=== PATIENT | female | born 1995 | race Caucasian/White ===

== ENCOUNTER 2017-06-08 17:49 | Emergency (ER) | payer OTHER, BC ==
[2017-06-08] MEDS ORDERED: Sodium Chloride 0.9% 10 ML Syringe FLUSH PRN (18:22)
[2017-06-08] MEDS ORDERED: Ondansetron 4 MG/2 ML SDV IVPUSH ONE (18:22)
[2017-06-08] MEDS ORDERED: Sodium Chloride 0.9% 2.5 ML Syringe FLUSH PRN (18:22)
[2017-06-08] MEDS ORDERED: Sodium Chloride 0.9% 1,000 ML IV ONE ×2 (18:32→19:27)
--- NOTE | 2017-06-08 18:43 | EDM.PDOC ---
<Racquel Almanzar - Last Filed: 06/08/17 19:46> ED HPI GENERAL MEDICAL PROBLEM - General Chief Complaint: Gastrointestinal Problem Stated Complaint: 15WEEKS/POSSIBLE FLU Time Seen by Provider: 06/08/17 18:18 - History of Present Illness INITIAL COMMENTS - FREE TEXT/NARRATIVE: There is Dr. Almanzar dictating an addendum note as this case has been endorsed to me at 7 PM. History and physical are as above. heart tones were obtained by labor and delivery and are 168 strong. UA indicates dehydration with ketosis and the patient's initial IV has infiltrated but was repositioned by nursing and she is receiving her first liter of IV fluids. I will give her a second liter of fluids and start by mouth as she is not having any nausea or vomiting currently. She says she feels she is ready to try a popsicle. I will follow-up on the influenza and disposition appropriately. I will stress need for follow-up with her OB M.D. she tells me that she did have some issues with vomiting at around 8 or 9 weeks but has been doing well recently. She states understanding and is overall feeling better and will be disposition home after her second liter of IV fluids. - Related Data Allergies Allergy/AdvReac Type Severity Reaction Status Date / Time No Known Allergies Allergy Verified 06/08/17 18:12 Home Meds: Home Meds Ondansetron [Ondansetron ODT] 1 tab PO ASDIRECTED 06/08/17 [History] Course - Vital Signs Last Recorded V/S: Last Vital Signs Temp 99.3 F 06/08/17 21:15 Pulse 88 06/08/17 21:15 Resp 14 06/08/17 21:15 BP 110/63 06/08/17 21:15 Pulse Ox 97 06/08/17 21:15 - Orders/Labs/Meds Orders: Active Orders 24 hr Category Date Time Status INFLUENZA A+B AG SCREEN [RM] Stat Lab 06/08/17 18:36 Ordered UA W/MICROSCOPIC [URIN] Stat Lab 06/08/17 18:36 Ordered Saline Lock Insert [OM.PC] Stat Oth 06/08/17 18:22 Ordered Labs: Laboratory Tests 06/08/17 Range/Units 18:36 Urine Color YELLOW Urine Appearance HAZY Urine pH 5.5 (5.0-8.0) Ur Specific [place] >= 1.030 (1.001-1.035) Urine Protein 30 (NEGATIVE) mg/dL Urine Glucose (UA) NEGATIVE (NEGATIVE) mg/dL Urine Ketones >=80 (NEGATIVE) mg/dL Urine Occult Blood NEGATIVE (NEGATIVE) Urine Nitrite NEGATIVE (NEGATIVE) Urine Bilirubin SMALL H (NEGATIVE) Urine Ictotest NEGATIVE Urine Urobilinogen 1.0 (<2.0) EU/dL Ur Leukocyte Esterase NEGATIVE (NEGATIVE) Urine RBC 1-2 (0-2/HPF) Urine WBC 0-2 (0-5/HPF) Ur Epithelial Cells FEW (NONE-FEW) Urine Bacteria FEW (NEGATIVE) Urine Mucus LIGHT (NONE-MOD) Meds: Medications Discontinued Medications Generic Name Dose Route Start Last Admin Trade Name Freq PRN Reason Stop Dose Admin Sodium Chloride 1,000 mls @ 999 mls/hr 06/08/17 18:32 06/08/17 18:46 Normal Saline IV 06/08/17 19:32 999 mls/hr .Bolus ONE Administration Sodium Chloride 1,000 mls @ 999 mls/hr 06/08/17 19:27 06/08/17 19:59 Normal Saline IV 06/08/17 20:27 999 mls/hr STAT ONE Administration Ondansetron HCl 4 mg 06/08/17 18:22 06/08/17 18:46 Zofran IVPUSH 06/08/17 18:23 4 mg ONETIME ONE Administration Sodium Chloride 10 ml 06/08/17 18:22 06/08/17 19:12 Saline Flush FLUSH 10 ml ASDIRECTED PRN Administration Keep Vein Open Sodium Chloride 2.5 ml 06/08/17 18:22 06/08/17 19:12 Saline Flush FLUSH 2.5 ml ASDIRECTED PRN Administration Keep Vein Open Departure - Departure Time of Disposition: 19:47 Disposition: Home, Self-Care 01 Condition: Good Clinical Impression: Vomiting, Diarrhea, Dehydration, Second trimester - Discharge Information Instructions: Dehydration, Adult, [id number], Nausea and Vomiting, Adult Referrals: Larisa Patterson MD [Primary Care Provider] - Forms: ED Department Discharge Additional Instructions: The following information is given to patients seen in the emergency department who are being discharged to home. This information is to outline your options for follow-up care. We provide all patients seen in our emergency department with a follow-up referral. The need for follow-up, as well as the timing and circumstances, are variable depending upon the specifics of your emergency department visit. If you don't have a primary care physician on staff, we will provide you with a referral. We always advise you to contact your personal physician following an emergency department visit to inform them of the circumstance of the visit and for follow-up with them and/or the need for any referrals to a consulting specialist. The emergency department will also refer you to a specialist when appropriate. This referral assures that you have the opportunity for followup care with a specialist. All of these measure are taken in an effort to provide you with optimal care, which includes your followup. Under all circumstances we always encourage you to contact your private physician who remains a resource for coordinating your care. When calling for followup care, please make the office aware that this follow-up is from your recent emergency room visit. If for any reason you are refused follow-up, please contact the [facility] emergency department at and ask to speak to the emergency department charge nurse. [address] [address] Please push hydration and small bites of bland foods and please contact her OB M.D. for follow-up. Return to ER as needed and as discussed - My Orders Last 24 Hours: My Active Orders 06/08/17 18:22 Saline Lock Insert [OM.PC] Stat 06/08/17 18:36 INFLUENZA A+B AG SCREEN [RM] Stat UA W/MICROSCOPIC [URIN] Stat - Assessment/Plan Last 24 Hours: My Active Orders 06/08/17 18:22 Saline Lock Insert [OM.PC] Stat 06/08/17 18:36 INFLUENZA A+B AG SCREEN [RM] Stat UA W/MICROSCOPIC [URIN] Stat <Mery Liriano - Last Filed: 06/09/17 07:07> ED HPI GENERAL MEDICAL PROBLEM - General Source of Information: Reports: Patient History Limitations: Reports: No Limitations - History of Present Illness INITIAL COMMENTS - FREE TEXT/NARRATIVE: History of present illness: []Patient's had 3 day history of flu symptoms with body aches, vomiting, diarrhea, and chills. Patient had influenza 4 months ago and states it feels the same. She did not have a flu shot this year. Patient is 15 weeks . Patient has had 1 episodes of vomiting the first night 6 episodes yesterday and 3 times today. She has had a similar amount of nonbloody watery diarrhea. She denies any vaginal bleeding or lower pelvic pain. Review of systems: As per history of present illness and below otherwise all systems reviewed and negative. Past medical history: As per history of present illness and as reviewed below otherwise noncontributory. Surgical history: As per history of present illness and as reviewed below otherwise noncontributory. Social history: No reported history of drug or alcohol abuse. Family history: As per history of present illness and as reviewed below otherwise noncontributory. Physical exam: General: Well developed, well nourished in NAD HEENT: Atraumatic, normocephalic, pupils reactive, negative for conjunctival pallor or scleral icterus, mucous membranes moist, throat clear, neck supple, nontender, trachea midline. Lungs: Clear to auscultation, breath sounds equal bilaterally, chest nontender. Heart: S1S2, regular, negative for clicks, rubs, or JVD. Abdomen: NABS, Soft, nondistended, diffuse mild tenderness no rebound or guarding. Negative for masses or hepatosplenomegaly. Negative for costovertebral tenderness. Pelvis: Stable nontender. Genitourinary: Deferred. Rectal: Deferred. Extremities: Atraumatic, negative for cords or calf pain. Neurovascular unremarkable. Neuro: Awake, alert, oriented. Cranial nerves II through XII unremarkable. Cerebellum unremarkable. Motor and sensory unremarkable throughout. Exam nonfocal. Diagnostics: heart tones and influenza are pending at the time of dictation Therapeutics: []IV hydrated, Zofran, reevaluation per Dr. Almanzar Impression: []Vomiting, diarrhea, dehydration, second trimester . Further diagnosis per Dr. Almanzar Plan: []Disposition per Dr. Almanzar Definitive disposition and diagnosis as appropriate pending reevaluation and review of above. Past Medical History HEENT History: Reports: None Neurological History: Reports: Migraines - Past Surgical History HEENT Surgical History: Reports: Oral Surgery Neurological Surgical History: Reports: None Social & Family History - Family History Family Medical History: Noncontributory - Tobacco Use Smoking Status *Q: Never Smoker Second Hand Smoke Exposure: No - Caffeine Use Caffeine Use: Reports: Other - Recreational Drug Use Recreational Drug Use: No ED ROS GENERAL - Review of Systems Review Of Systems: See Below (See history of present illness) ED EXAM, GENERAL - Physical Exam Exam: See Below (See history of present illness) Course - Orders/Labs/Meds Labs: Laboratory Tests 06/08/17 Range/Units 18:36 Urine Color YELLOW Urine Appearance HAZY Urine pH 5.5 (5.0-8.0) Ur Specific [place] >= 1.030 (1.001-1.035) Urine Protein 30 (NEGATIVE) mg/dL Urine Glucose (UA) NEGATIVE (NEGATIVE) mg/dL Urine Ketones >=80 (NEGATIVE) mg/dL Urine Occult Blood NEGATIVE (NEGATIVE) Urine Nitrite NEGATIVE (NEGATIVE) Urine Bilirubin SMALL H (NEGATIVE) Urine Ictotest NEGATIVE Urine Urobilinogen 1.0 (<2.0) EU/dL Ur Leukocyte Esterase NEGATIVE (NEGATIVE) Urine RBC 1-2 (0-2/HPF) Urine WBC 0-2 (0-5/HPF) Ur Epithelial Cells FEW (NONE-FEW) Urine Bacteria FEW (NEGATIVE) Urine Mucus LIGHT (NONE-MOD)
[2017-06-08 21:16] VITALS: BP 110/63
== END 2017-06-08 21:17 | disposition home or self-care (01) ==
LOC: MW.ED 17:49
DX: O21.9 Vomiting of pregnancy, unspecified (principal); O99.89 Other specified diseases and conditions complicating pregnancy, childbirth and the puerperium; R19.7 Diarrhea, unspecified; O99.282 Endocrine, nutritional and metabolic diseases complicating pregnancy, second trimester; E86.0 Dehydration; Z3A.15 15 weeks gestation of pregnancy
CPT/HCPCS: 81001; 87804; 96361; 96374; 99284; J2405; J7040

== ENCOUNTER 2017-11-11 10:54 | Day surgery (SDC) | payer BC, OTHER ==
[2017-11-11] MEDS ORDERED: Sodium Chloride 0.9% 10 ML Syringe FLUSH PRN (11:12)
[2017-11-11] MEDS ORDERED: Sodium Chloride 0.9% 2.5 ML Syringe FLUSH PRN (11:12)
[2017-11-11] MEDS: Lactated Ringers 1,000 ML IV SCH ×3 (11:43→15:17)
[2017-11-11] MEDS ORDERED: Bupivacaine 0.5% 10 ML SDV ONE (12:37)
--- NOTE | 2017-11-11 12:43 | PCM.PREANE ---
Preanesthetic Assessment - Anesthesia/Transfusion/Family Hx Anesthesia History: No Prior Anesthesia Family History of Anesthesia Reaction: No Transfusion History: No Prior Transfusion(s) - Review of Systems General: No Symptoms Pulmonary: No Symptoms Cardiovascular: No Symptoms Gastrointestinal: No Symptoms Neurological: No Symptoms Other: Reports: None - Physical Assessment Height: 5 ft 6 in Weight: 82.191 kg ASA Class: 2 Mental Status: Alert & Oriented x3 Airway Class: Mallampati = 2 Dentition: Reports: Normal Dentition Thyro-Mental Finger Breadths: 3 Mouth Opening Finger Breadths: 3 ROM/Head Extension: Full Lungs: Clear to Auscultation, Normal Respiratory Effort Cardiovascular: Regular Rate, Regular Rhythm - Lab Values: Laboratory Last Values WBC 10.77 K/uL (4.0-11.0) 11/11/17 11:42 RBC 3.82 M/uL (4.30-5.90) L 11/11/17 11:42 Hgb 12.5 g/dL (12.0-16.0) 11/11/17 11:42 Hct 37.0 % (36.0-46.0) 11/11/17 11:42 MCV 96.9 fL (80.0-98.0) 11/11/17 11:42 MCH 32.7 pg (27.0-32.0) H 11/11/17 11:42 MCHC 33.8 g/dL (31.0-37.0) 11/11/17 11:42 RDW Std Deviation 45.4 fl (28.0-62.0) 11/11/17 11:42 RDW Coeff of Marnie 13 % (11.0-15.0) 11/11/17 11:42 Plt Count 206 K/uL (150-400) 11/11/17 11:42 MPV 12.10 fL (7.40-12.00) H 11/11/17 11:42 Nucleated RBC % 0.0 /100WBC 11/11/17 11:42 Nucleated RBCs # 0 K/uL 11/11/17 11:42 Blood Type A POSITIVE 11/11/17 11:42 Antibody Screen NEGATIVE 11/11/17 11:42 - Allergies Allergies/Adverse Reactions: Allergies Allergy/AdvReac Type Severity Reaction Status Date / Time No Known Allergies Allergy Verified 11/11/17 11:12 - Acknowledgements Anesthesia Type Planned: Epidural Pt an Appropriate Candidate for the Planned Anesthesia: Yes Alternatives and Risks of Anesthesia Discussed w Pt/Guardian: Yes Pt/Guardian Understands and Agrees with Anesthesia Plan: Yes PreAnesthesia Questionnaire HEENT History: Reports: None Cardiovascular History: Reports: None Respiratory History: Reports: None Gastrointestinal History: Reports: GERD Genitourinary History: Reports: None LARD BLEACHER History: Reports: : 1 Para: 0 LMP (Approximate): Musculoskeletal History: Reports: None Neurological History: Reports: Migraines Psychiatric History: Reports: None Endocrine/Metabolic History: Reports: Obesity/BMI 30+ Hematologic History: Reports: None Immunologic History: Reports: None Oncologic (Cancer) History: Reports: None Dermatologic History: Reports: None - Infectious Disease History Infectious Disease History: Reports: Herpes - Past Surgical History HEENT Surgical History: Reports: Oral Surgery Neurological Surgical History: Reports: None - HOME MEDS Home Medications: Home Meds Ondansetron [Ondansetron ODT] 1 tab PO TID 06/08/17 [History] Calcium Carbonate [Tums] 500 mg PO DAILY PRN 11/11/17 [History] Cyanocobalamin (Vitamin B-12) [Vitamin B12] 2,500 mcg PO DAILY 11/11/17 [History ] Pnv No.122/Iron/Folic Acid [ Multi Tablet] 1 each PO DAILY 11/11/17 [ History] diphenhydrAMINE HCl [Benadryl] 25 mg PO DAILY PRN 11/11/17 [History] - CURRENT (IN HOUSE) MEDS Current Meds: Current Medications Lactated Ringer's (Ringers, Lactated) 1,000 mls @ 125 mls/hr IV ASDIRECTED [facility] Last Admin: 11/11/17 11:43 Dose: 150 mls/hr Sodium Chloride (Saline Flush) 10 ml FLUSH ASDIRECTED PRN PRN Reason: Keep Vein Open Sodium Chloride (Saline Flush) 2.5 ml FLUSH ASDIRECTED PRN PRN Reason: Keep Vein Open
[2017-11-11] MEDS ORDERED: Lidocaine 1% 50 ML MDV ONE (13:03)
[2017-11-11] MEDS ORDERED: Terbutaline 1 MG/ML SDV ONE (13:29)
[2017-11-11] MEDS ORDERED: ePHEDrine 50 MG/ML SDV ONE (13:58)
[2017-11-11] MEDS ORDERED: Phenylephrine 1% 10 MG/ML SDV ONE (13:59)
[2017-11-11] MEDS ORDERED: Ondansetron 4 MG/2 ML SDV ONE (14:02)
[2017-11-11] MEDS ORDERED: Ondansetron 4 MG/2 ML SDV IVPUSH ONE (14:43)
[2017-11-11] MEDS ORDERED: Terbutaline 1 MG/ML SDV SUBCUT ONE (14:44)
--- NOTE | 2017-11-11 18:54 | PCM48HPAN ---
Post Anesthesia Note - EVALUATION WITHIN 48HRS OF ANESTHETIC Vital Signs in Normal Range: Yes Patient Participated in Evaluation: Yes Respiratory Function Stable: Yes Airway Patent: Yes Cardiovascular Function Stable: Yes Hydration Status Stable: Yes Pain Control Satisfactory: Yes Nausea and Vomiting Control Satisfactory: Yes Mental Status Recovered: Yes - COMMENTS/OBSERVATIONS Free Text/Narrative:: sensory and motor grossly intact. Patient voiding and ambulating prior to discharge.
--- NOTE | 2017-11-12 10:01 | US ---
EXAMINATION: Transabdominal obstetric ultrasound HISTORY: version COMPARISON: None TECHNIQUE: Grayscale and M-mode imaging obtained. FINDINGS: Single live intrauterine is noted without rate of 144 to 120 bpm. Initial imaging demonstrated a breech position with subsequent cephalic positioning post inversion. IMPRESSION: Sonographic imaging demonstrates successful version to a cephalic position.
--- NOTE | 2017-11-12 11:13 | OR ---
SURGEON: Larisa Patterson M.D. DATE OF PROCEDURE: 11/11/2017 PREOPERATIVE DIAGNOSES: 1. 37-week intrauterine . 2. Angelic breech presentation. POSTOPERATIVE DIAGNOSES: 1. 37-week intrauterine . 2. Angelic breech presentation. 3. Breech converted to cephalic presentation. ANESTHESIA: Epidural. ESTIMATED BLOOD LOSS: None. PROCEDURE: External cephalic version. COMPLICATIONS: None known. DISPOSITION: To home. BRIEF HISTORY: This is a 22-year-old female, G1, P0. She presented at 37 weeks in the clinic with angelic breech presentation. She was 2 to 3 cm dilated, she had normal amniotic fluid, normal growth. No nuchal cord. She was offered options of external cephalic version. With risks of pain, placental abruption, injury, rupture of membranes or onset of labor requiring urgent delivery, distress requiring urgent delivery versus planned delivery if she did not convert to cephalic spontaneously. She desired to proceed with an external cephalic version under epidural analgesia. The patient received her epidural. She had category 1 tracing with very occasional contractions. After appropriate time-out was held, the patient received terbutaline subcu and ultrasound was present for the procedure. Two attempts were made at external version elevating the breech externally and with the head rotating forward, these attempts were unsuccessful. Once the heart tones recovered, I did offer an additional attempt with vaginal elevation of the breech and the patient did agree and therefore I did elevate the breech from the pelvis vaginally being careful to avoid the slightly open cervix. The nurse was assisting me, then grasped the breech from above and then I was able to rotate the head to a cephalic presentation, confirmed by ultrasound. Following this, heart tones were in the 130s to 150s, category 1 with a very occasional contractions. Following the second attempt at version, she did develop hypotension. Anesthesia was present and did provide ephedrine for her and the patient's blood pressure recovered with IV fluids as well as ephedrine and following the procedure, the fetus was documented to be cephalic presentation, category 1 heart tones. No regular contractions and she was released to home. MILADYS / SANTOS /[id number]
== END 2017-11-11 17:30 | disposition home or self-care (01) ==
LOC: MW.SDS 10:54
PROVIDERS: ATTEND Obstetrics & Gynecology
DX: O32.1XX0 Maternal care for breech presentation, not applicable or unspecified (principal); Z3A.37 37 weeks gestation of pregnancy
CPT/HCPCS: 36415; 51701; 59025; 59412; 76815; 85027; 86850; 86900; 86901; J2370; J2405; J3105; J3490; J7120; 01958

== ENCOUNTER 2017-11-20 05:03 | Inpatient (IN) | payer BC ==
[2017-11-20] MEDS ORDERED: Lidocaine 1% 50 ML MDV INJECT PRN (05:33)
[2017-11-20] MEDS ORDERED: Water For Irrigation,Sterile 1,000 ML Container IRR PRN (05:33)
[2017-11-20] MEDS ORDERED: Misoprostol 200 MCG Tab PO PRN (05:33)
[2017-11-20] MEDS ORDERED: Carboprost Tromethamine 250 MCG/1 ML Amp IM PRN (05:33)
[2017-11-20] MEDS ORDERED: Nalbuphine 10 MG/1 ML Vial IVPUSH PRN (05:33)
[2017-11-20] MEDS ORDERED: Sodium Chloride 0.9% 10 ML Syringe FLUSH PRN (05:33)
[2017-11-20] MEDS ORDERED: Sodium Chloride 0.9% 2.5 ML Syringe FLUSH PRN (05:33)
[2017-11-20] MEDS ORDERED: Methylergonovine 0.2 MG/1 ML Amp IM PRN ×2 (05:33→14:47)
[2017-11-20] MEDS ORDERED: Butorphanol 1 MG/ML SDV IVPUSH PRN (05:33)
[2017-11-20] MEDS ORDERED: Tranexamic Acid 1,000 MG in Sodium Chloride 0.9% 100 ML IV PRN (05:33)
[2017-11-20] MEDS ORDERED: Terbutaline 1 MG/ML SDV SUBCUT PRN (05:33)
[2017-11-20] MEDS ORDERED: Oxytocin/0.9 % Sodium Chloride 30 UNIT/500 ML BAG IV SCH ×2 (05:45)
[2017-11-20] MEDS: Lactated Ringers 1,000 ML IV SCH ×2 (06:12→11:21)
--- NOTE | 2017-11-20 10:59 | US ---
EXAM DATE: 11/20/17 PATIENT'S AGE: 22 Patient: JOHN MCDONOUGH Facility: [place], [place] Site . Site : 1996 Study: US OB Pelvis [id number]/2017 7:05:14 AM Ordering Physician: Leonardo Peres Final Report: INDICATION: CHECK POSITION PRIOR TO INDUCTION HISTORY: Check position prior to induction. COMPARISON: None. TECHNIQUE: obstetric ultrasound. FINDINGS: Single living intrauterine fetus. Cardiac activity by M-mode ultrasound is 130 beats per minute. Presentation is currently cephalic. There is no placenta previa identified. Subjectively, amniotic fluid volume is within normal limits. The placenta is posterior. IMPRESSION: Presentation is currently cephalic. Dictated by Pratik Witt MD @ 11/20/2017 7:21:02 AM Dictated by: Pratik Witt MD @ 11/20/2017 07:21:07 (Electronic Signature) Report Signed by Proxy. MARTIN
--- NOTE | 2017-11-20 11:15 | PCM.PREANE ---
Preanesthetic Assessment - Anesthesia/Transfusion/Family Hx Anesthesia History: No Prior Anesthesia Family History of Anesthesia Reaction: No Transfusion History: No Prior Transfusion(s) - Review of Systems General: No Symptoms Pulmonary: No Symptoms Cardiovascular: No Symptoms Gastrointestinal: No Symptoms Neurological: No Symptoms Other: Reports: None - Physical Assessment Height: 5 ft 7 in Weight: 82.554 kg ASA Class: 2 Mental Status: Alert & Oriented x3 Airway Class: Mallampati = 2 Dentition: Reports: Normal Dentition Thyro-Mental Finger Breadths: 3 Mouth Opening Finger Breadths: 3 ROM/Head Extension: Full Lungs: Clear to Auscultation, Normal Respiratory Effort Cardiovascular: Regular Rate, Regular Rhythm - Lab Values: Laboratory Last Values WBC 8.71 K/uL (4.0-11.0) 11/20/17 06:10 RBC 3.73 M/uL (4.30-5.90) L 11/20/17 06:10 Hgb 12.2 g/dL (12.0-16.0) 11/20/17 06:10 Hct 36.4 % (36.0-46.0) 11/20/17 06:10 MCV 97.6 fL (80.0-98.0) 11/20/17 06:10 MCH 32.7 pg (27.0-32.0) H 11/20/17 06:10 MCHC 33.5 g/dL (31.0-37.0) 11/20/17 06:10 RDW Std Deviation 46.2 fl (28.0-62.0) 11/20/17 06:10 RDW Coeff of Marnie 13 % (11.0-15.0) 11/20/17 06:10 Plt Count 178 K/uL (150-400) 11/20/17 06:10 MPV 12.30 fL (7.40-12.00) H 11/20/17 06:10 Nucleated RBC % 0.0 /100WBC 11/20/17 06:10 Nucleated RBCs # 0 K/uL 11/20/17 06:10 Blood Type A POSITIVE 11/20/17 06:10 Antibody Screen NEGATIVE 11/20/17 06:10 - Allergies Allergies/Adverse Reactions: Allergies Allergy/AdvReac Type Severity Reaction Status Date / Time No Known Allergies Allergy Verified 11/11/17 11:12 - Acknowledgements Anesthesia Type Planned: Epidural Pt an Appropriate Candidate for the Planned Anesthesia: Yes Alternatives and Risks of Anesthesia Discussed w Pt/Guardian: Yes Pt/Guardian Understands and Agrees with Anesthesia Plan: Yes PreAnesthesia Questionnaire HEENT History: Reports: None Cardiovascular History: Reports: None Respiratory History: Reports: None Gastrointestinal History: Reports: GERD Genitourinary History: Reports: None [employer]GER History: Reports: LMP (Approximate): Musculoskeletal History: Reports: None Neurological History: Reports: Migraines Psychiatric History: Reports: None Endocrine/Metabolic History: Reports: Obesity/BMI 30+ Hematologic History: Reports: None Immunologic History: Reports: None Oncologic (Cancer) History: Reports: None Dermatologic History: Reports: None - Infectious Disease History Infectious Disease History: Reports: Herpes - Past Surgical History HEENT Surgical History: Reports: Oral Surgery Other HEENT Surgeries/Procedures: [place] teeth 2014 Endocrine Surgical History: Reports: None Neurological Surgical History: Reports: None - SUBSTANCE USE Smoking Status *Q: Never Smoker Second Hand Smoke Exposure: No Recreational Drug Use History: No - HOME MEDS Home Medications: Home Meds Ondansetron [Ondansetron ODT] 1 tab PO TID 06/08/17 [History] Calcium Carbonate [Tums] 500 mg PO DAILY PRN 11/11/17 [History] Cyanocobalamin (Vitamin B-12) [Vitamin B12] 2,500 mcg PO DAILY 11/11/17 [History ] Pnv No.122/Iron/Folic Acid [ Multi Tablet] 1 each PO DAILY 11/11/17 [ History] diphenhydrAMINE HCl [Benadryl] 25 mg PO DAILY PRN 11/11/17 [History] - CURRENT (IN HOUSE) MEDS Current Meds: Current Medications Butorphanol Tartrate (Stadol) 1 mg IVPUSH ASDIRECTED PRN PRN Reason: Pain Carboprost Tromethamine (Hemabate Ds) 250 mcg IM ASDIRECTED PRN PRN Reason: Post Hemorrhage Lactated Ringer's (Ringers, Lactated) 1,000 mls @ 150 mls/hr IV ASDIRECTED YUE Last Admin: 11/20/17 06:12 Dose: 150 mls/hr Oxytocin/Sodium Chloride (Oxytocin 30 Unit/500 Ml-Ns) 30 unit in 500 mls @ 999 mls/hr IV TITRATE YUE Oxytocin/Sodium Chloride (Oxytocin 30 Unit/500 Ml-Ns) 30 unit in 500 mls @ 2 mls/hr IV TITRATE YUE; Protocol Last Titration: 11/20/17 10:05 Dose: 10 munits/min, 10 mls/hr Tranexamic Acid 1,000 mg/ (Sodium Chloride) 110 mls @ 660 mls/hr IV ONETIME PRN PRN Reason: Bleeding Lidocaine HCl (Xylocaine 1%) 50 ml INJECT ONETIME PRN PRN Reason: Laceration repair Methylergonovine Maleate (Methergine) 0.2 mg IM ASDIRECTED PRN PRN Reason: Post Hemorrhage Misoprostol (Cytotec) 200 mcg PO ONETIME PRN PRN Reason: Post Hemorrhage Nalbuphine HCl (Nubain) 10 mg IVPUSH ASDIRECTED PRN PRN Reason: Pain (severe 7-10) Sodium Chloride (Saline Flush) 10 ml FLUSH ASDIRECTED PRN PRN Reason: Keep Vein Open Sodium Chloride (Saline Flush) 2.5 ml FLUSH ASDIRECTED PRN PRN Reason: Keep Vein Open Sterile Water (Sterile Water For Irrigation) 1,000 ml IRR ASDIRECTED PRN PRN Reason: delivery Terbutaline Sulfate (Brethine) 0.25 mg SUBCUT ASDIRECTED PRN PRN Reason: Tacysystole
[2017-11-20] MEDS ORDERED: Witch Hazel Medicated Pads 40/Jar TOP PRN (14:47)
[2017-11-20] MEDS ORDERED: oxyCODONE 5 MG Tab PO PRN (14:47)
[2017-11-20] MEDS ORDERED: Benzocaine/Menthol 20%-0.5% Spray 78 GM Cannister TOP PRN (14:47)
[2017-11-20] MEDS ORDERED: Docusate Sodium 100 MG Cap PO PRN (14:47)
[2017-11-20] MEDS ORDERED: Lanolin 100% Cream 7 GM Tube TOP PRN (14:47)
[2017-11-20] MEDS ORDERED: Bisacodyl 10 MG Supp RECTAL PRN (14:47)
[2017-11-20] MEDS ORDERED: Acetaminophen 500 MG Tab PO PRN ×2 (14:47)
[2017-11-20] MEDS ORDERED: Ibuprofen 400 MG Tab PO PRN (14:47)
--- NOTE | 2017-11-20 14:48 | PCM.DEL ---
L & D Note - General Info Date of Service: 11/20/17 Mother's Due Date: 11/27/17 - Delivery Note Labor: Induced by Oxytocin Delivery Outcome: Livebirth Infant Delivery Method: Spontaneous Vaginal Delivery-Single Presentation: Left Occiput Anterior (MALIK) Nuchal Cord: Present (x2) Anesthesia Type: Epidural Amniotic Fluid Description: Clear Episiotomy Type: None Laceration: Labial Suture type: Vicryl Suture size: 3-0 Placenta: Intact, Spontaneous Cord: 3 Vessels Estimated Blood Loss: 300 Resuscitation Needed: No : Suctioned, Stimulated, [place] Used Provider: Larisa Patterson (Gianluca Charles, MS4) Score 1 min: 9 Score 5 min: 9 Delivery Comments (Free Text/Narrative):: Delivery of viable female infant weighing 3360 grams. - General Info Date of Service: 11/20/17 - Patient Data Weight - Most Recent: 182 lb Lab Results Last 24 Hours: Laboratory Results - last 24 hr 11/20/17 11/20/17 Range/Units 06:10 06:10 WBC 8.71 (4.0-11.0) K/uL RBC 3.73 L (4.30-5.90) M/uL Hgb 12.2 (12.0-16.0) g/dL Hct 36.4 (36.0-46.0) % MCV 97.6 (80.0-98.0) fL MCH 32.7 H (27.0-32.0) pg MCHC 33.5 (31.0-37.0) g/dL RDW Std Deviation 46.2 (28.0-62.0) fl RDW Coeff of Marnie 13 (11.0-15.0) % Plt Count 178 (150-400) K/uL MPV 12.30 H (7.40-12.00) fL Nucleated RBC % 0.0 /100WBC Nucleated RBCs # 0 K/uL Blood Type A POSITIVE Antibody Screen NEGATIVE Med Orders - Current: Current Medications Butorphanol Tartrate (Stadol) 1 mg IVPUSH ASDIRECTED PRN PRN Reason: Pain Carboprost Tromethamine (Hemabate Ds) 250 mcg IM ASDIRECTED PRN PRN Reason: Post Hemorrhage Lactated Ringer's (Ringers, Lactated) 1,000 mls @ 150 mls/hr IV ASDIRECTED YUE Last Admin: 11/20/17 11:21 Dose: 999 mls/hr Oxytocin/Sodium Chloride (Oxytocin 30 Unit/500 Ml-Ns) 30 unit in 500 mls @ 999 mls/hr IV TITRATE YUE Oxytocin/Sodium Chloride (Oxytocin 30 Unit/500 Ml-Ns) 30 unit in 500 mls @ 2 mls/hr IV TITRATE YUE; Protocol Last Titration: 11/20/17 10:05 Dose: 10 munits/min, 10 mls/hr Tranexamic Acid 1,000 mg/ (Sodium Chloride) 110 mls @ 660 mls/hr IV ONETIME PRN PRN Reason: Bleeding Lidocaine HCl (Xylocaine 1%) 50 ml INJECT ONETIME PRN PRN Reason: Laceration repair Methylergonovine Maleate (Methergine) 0.2 mg IM ASDIRECTED PRN PRN Reason: Post Hemorrhage Misoprostol (Cytotec) 200 mcg PO ONETIME PRN PRN Reason: Post Hemorrhage Nalbuphine HCl (Nubain) 10 mg IVPUSH ASDIRECTED PRN PRN Reason: Pain (severe 7-10) Sodium Chloride (Saline Flush) 10 ml FLUSH ASDIRECTED PRN PRN Reason: Keep Vein Open Sodium Chloride (Saline Flush) 2.5 ml FLUSH ASDIRECTED PRN PRN Reason: Keep Vein Open Sterile Water (Sterile Water For Irrigation) 1,000 ml IRR ASDIRECTED PRN PRN Reason: delivery Terbutaline Sulfate (Brethine) 0.25 mg SUBCUT ASDIRECTED PRN PRN Reason: Tacysystole Discontinued Medications Fentanyl/Bupivacaine HCl (Zsddodme-Telhf-Qx 2 Mcg/Ml-0.125%) Confirm Administered Dose 100 mls @ as directed EP .STK-MED ONE Stop: 11/20/17 11:21 - Problem List Review Problem List Initiated/Reviewed/Updated: Yes - Assessment Assessment:: 22 year old female at 39weeks 0 day gestation with pitocin induction following a successful external cephalic version Delivery of viable female infant - Plan Plan:: Routine cares
--- NOTE | 2017-11-20 16:42 | OR ---
SURGEON: Larisa Patterson M.D. DATE OF PROCEDURE: 11/20/2017 PREOPERATIVE DIAGNOSIS: 39 week intrauterine , breech presentation converted to cephalic. POSTOPERATIVE DIAGNOSIS: 39 week intrauterine , breech presentation converted to cephalic. PROCEDURES: 1. Pitocin induction. 2. Term spontaneous vaginal delivery. 3. Repair of right labial laceration. OIL LEASE BROKER: BAUDILIO Andrade. ANESTHESIA: Epidural. ESTIMATED BLOOD LOSS: Less than 200 mL. FINDINGS: Live born female, scores 9 and 9, weighing 3360 g. Placenta spontaneous, Schultze intact with 3 vessels. Perineum intact. There is a small right labial laceration requiring a single suture for hemostasis. COMPLICATIONS: None known. DISPOSITION: Mother and baby are in LDRP in good condition. BRIEF HISTORY: This is a 22-year-old female, she is G1, P0. She presents for induction of labor 1 week following a successful external cephalic version. By ultrasound, it was confirmed that the baby was still cephalic. She had category 1 heart tones. She was initially 3 to 4 cm, 80%. She received Pitocin with contractions every 3 to 5 minutes up to a maximum of 10 milliunits per minute of Pitocin. She did receive an epidural for pain control. She had artificial rupture of membranes. Clear fluid was noted. She progressed to complete. PROCEDURE IN DETAIL: With the patient in the dorsal lithotomy position, the patient pushed over 45 minute time period to a 5+ station, at which time the head was delivered spontaneously and atraumatically over the perineum with support. A loose nuchal cord was noted. Therefore I did proceed with delivery of the anterior and posterior shoulders without any difficulty followed by the infant's body. The nuchal cord was reduced. The was handed to the mother in the presence of the nurse attending delivery. The is a liveborn female, scores 9 and 9, weighing 3360 g. After the cord had ceased to pulsate, it was doubly clamped and cut. Cord blood was collected for cord ABGs as well as routine cord blood sampling. Pitocin was initiated after delivery of the infant to assist with delivery of the placenta which was delivered spontaneously, Schultze intact with 3 vessels. Upon inspection the pelvis and perineum, there were no periurethral, vaginal sidewall, cervical, rectal, or perineal lacerations. There was a right labial laceration, which was bleeding slightly, therefore a [id number]-[id number] suture of 3-0 Vicryl was utilized for hemostasis. Final sponge, needle, and instrument counts were correct. There were no known complications. Mother and baby are in LDRP in good condition. MILADYS GRAHAM /[id number]
--- NOTE | 2017-11-20 16:52 | PCM48HPAN ---
Post Anesthesia Note - EVALUATION WITHIN 48HRS OF ANESTHETIC Vital Signs in Normal Range: Yes Patient Participated in Evaluation: Yes Respiratory Function Stable: Yes Airway Patent: Yes Cardiovascular Function Stable: Yes Hydration Status Stable: Yes Pain Control Satisfactory: Yes Nausea and Vomiting Control Satisfactory: Yes Mental Status Recovered: Yes
[2017-11-21] MEDS: Ibuprofen 800 MG Tab PO PRN ×2 (06:38→13:48)
--- NOTE | 2017-11-21 07:41 | PCM.PNPP ---
<Gianluca Charles Steve - Last Filed: 11/21/17 07:58> - General Info Date of Service: 11/21/17 Admission Dx/Problem (Free Text): PPD1: 22 year old female at 39 weeks and 0 days gestation admitted for induction of labor after successful ECV from breech position Subjective Update: PPD1: Mom and baby are doing well. Pain is well controlled. Meeting all appropriate milestones. Functional Status: Reports: Pain Controlled, Tolerating Diet, Ambulating, Urinating - Review of Systems General: Denies: Fever, Weakness, Fatigue, Chills Pulmonary: Denies: Shortness of Breath, Pleuritic Chest Pain, Cough Cardiovascular: Denies: Chest Pain, Dyspnea on Exertion, Lightheadedness Gastrointestinal: Reports: Flatus. Denies: Abdominal Pain, Nausea Genitourinary: Denies: Dysuria, Pain - General Info Date of Service: 11/21/17 - Patient Data Vital Signs - Most Recent: Last Vital Signs Temp 97.6 F 11/21/17 05:36 Pulse 69 11/21/17 05:36 Resp 18 11/21/17 05:36 BP 109/65 11/21/17 05:36 Pulse Ox 96 11/21/17 05:36 Weight - Most Recent: 82.554 kg I&O - Last 24 Hours: Intake & Output 11/20/17 11/21/17 11/21/17 22:59 06:59 14:59 Intake Total 1500 Balance 1500 Lab Results - Last 24 Hours: Laboratory Results - last 24 hr 11/20/17 11/21/17 Range/Units 14:23 05:40 Hgb 11.7 L (12.0-16.0) g/dL Hct 34.3 L (36.0-46.0) % Cord ABG pH 7.240 (7.18-7.38) Cord ABG Base Excess -3 (-10--2) Cord VBG pH 7.392 (7.25-7.45) Cord VBG Base Excess -2 (-10--2) Med Orders - Current: Current Medications Acetaminophen (Tylenol Extra Strength) 500 mg PO Q4H PRN PRN Reason: Pain Acetaminophen (Tylenol Extra Strength) 1,000 mg PO Q4H PRN PRN Reason: Pain Benzocaine/Menthol (Dermoplast Pain Relief 20%-0.5% Cook) 78 gm TOP ASDIRECTED PRN PRN Reason: Perineal Comfort Measure Bisacodyl (Dulcolax) 10 mg RECTAL ONETIME PRN PRN Reason: Constipation Docusate Sodium (Colace) 100 mg PO BID PRN PRN Reason: Constipation Last Admin: 11/20/17 21:26 Dose: 100 mg Emollient Ointment (Lansinoh Hpa) 0 gm TOP ASDIRECTED PRN PRN Reason: Sore Nipples Ibuprofen (Motrin) 400 mg PO Q4H PRN PRN Reason: Pain Ibuprofen (Motrin) 800 mg PO Q6H PRN PRN Reason: Pain Last Admin: 11/21/17 06:38 Dose: 800 mg Methylergonovine Maleate (Methergine) 0.2 mg IM ONETIME PRN PRN Reason: Excessive Vaginal Bleeding Oxycodone HCl (Oxycodone) 5 mg PO Q2H PRN PRN Reason: Pain Witch Danya (Tucks) 1 pad TOP ASDIRECTED PRN PRN Reason: comfort care Discontinued Medications Butorphanol Tartrate (Stadol) 1 mg IVPUSH ASDIRECTED PRN PRN Reason: Pain Carboprost Tromethamine (Hemabate Ds) 250 mcg IM ASDIRECTED PRN PRN Reason: Post Hemorrhage Lactated Ringer's (Ringers, Lactated) 1,000 mls @ 150 mls/hr IV ASDIRECTED YUE Last Admin: 11/20/17 11:21 Dose: 999 mls/hr Oxytocin/Sodium Chloride (Oxytocin 30 Unit/500 Ml-Ns) 30 unit in 500 mls @ 999 mls/hr IV TITRATE YUE Oxytocin/Sodium Chloride (Oxytocin 30 Unit/500 Ml-Ns) 30 unit in 500 mls @ 2 mls/hr IV TITRATE YUE; Protocol Last Titration: 11/20/17 14:24 Dose: 500 munits/min, 500 mls/hr Tranexamic Acid 1,000 mg/ (Sodium Chloride) 110 mls @ 660 mls/hr IV ONETIME PRN PRN Reason: Bleeding Fentanyl/Bupivacaine HCl (Weqlldrf-Zmavv-Vu 2 Mcg/Ml-0.125%) Confirm Administered Dose 100 mls @ as directed EP .STK-MED ONE Stop: 11/20/17 11:21 Lidocaine HCl (Xylocaine 1%) 50 ml INJECT ONETIME PRN PRN Reason: Laceration repair Methylergonovine Maleate (Methergine) 0.2 mg IM ASDIRECTED PRN PRN Reason: Post Hemorrhage Misoprostol (Cytotec) 200 mcg PO ONETIME PRN PRN Reason: Post Hemorrhage Nalbuphine HCl (Nubain) 10 mg IVPUSH ASDIRECTED PRN PRN Reason: Pain (severe 7-10) Sodium Chloride (Saline Flush) 10 ml FLUSH ASDIRECTED PRN PRN Reason: Keep Vein Open Sodium Chloride (Saline Flush) 2.5 ml FLUSH ASDIRECTED PRN PRN Reason: Keep Vein Open Sterile Water (Sterile Water For Irrigation) 1,000 ml IRR ASDIRECTED PRN PRN Reason: delivery Terbutaline Sulfate (Brethine) 0.25 mg SUBCUT ASDIRECTED PRN PRN Reason: Tacysystole - Interaction Disposition, : at Bedside Interaction: Holding Infant Infant Feeding: Breastfed Infant; Nursed Well Support Person: Significant Other - Recovery Exam Fundal Tone: Firm Fundal Level: 1 Fingerbreadths Below Umbilicus Fundal Placement: Midline Lochia Amount: Scant Lochia Color: Rubra/Red Perineum Description: Other (see below) Other Perinuem Description: rt inside laceration Episiotomy/Laceration: Approximated Bladder Status: Nonpalpable, Voiding Urinary Elimination: Voided - Exam General: Alert, Oriented Lungs: Clear to Auscultation, Normal Respiratory Effort Cardiovascular: Regular Rate, Regular Rhythm GI/Abdominal Exam: Normal Bowel Sounds, Soft, Non-Tender Extremities: Normal Inspection, Non-Tender, Pedal Edema (trace) Psy/Mental Status: Alert, Normal Affect, Normal Mood - Problem List Review Problem List Initiated/Reviewed/Updated: Yes - Assessment Assessment:: PPD1: 22 year old female now after spontaneous vaginal delivery doing well and meeting appropriate milestones - Plan Plan:: 1. Routine cares 2. Anticipate discharge home today. 3. Return to clinic in 6 weeks for PP visit. Instructions given about pelvic rest for 6 weeks and warning signs to come to clinic sooner. 4. Would like an IUD inserted at her next visit <Larisa Patterson - Last Filed: 11/21/17 08:07> - Patient Data Vital Signs - Most Recent: Last Vital Signs Temp 36.4 C 11/21/17 05:36 Pulse 69 11/21/17 05:36 Resp 18 11/21/17 05:36 BP 109/65 11/21/17 05:36 Pulse Ox 96 11/21/17 05:36 I&O - Last 24 Hours: Intake & Output 11/20/17 11/21/17 11/21/17 22:59 06:59 14:59 Intake Total 1500 Balance 1500 Lab Results - Last 24 Hours: Laboratory Results - last 24 hr 11/20/17 11/21/17 Range/Units 14:23 05:40 Hgb 11.7 L (12.0-16.0) g/dL Hct 34.3 L (36.0-46.0) % Cord ABG pH 7.240 (7.18-7.38) Cord ABG Base Excess -3 (-10--2) Cord VBG pH 7.392 (7.25-7.45) Cord VBG Base Excess -2 (-10--2) Med Orders - Current: Current Medications Acetaminophen (Tylenol Extra Strength) 500 mg PO Q4H PRN PRN Reason: Pain Acetaminophen (Tylenol Extra Strength) 1,000 mg PO Q4H PRN PRN Reason: Pain Benzocaine/Menthol (Dermoplast Pain Relief 20%-0.5% Cook) 78 gm TOP ASDIRECTED PRN PRN Reason: Perineal Comfort Measure Bisacodyl (Dulcolax) 10 mg RECTAL ONETIME PRN PRN Reason: Constipation Docusate Sodium (Colace) 100 mg PO BID PRN PRN Reason: Constipation Last Admin: 11/20/17 21:26 Dose: 100 mg Emollient Ointment (Lansinoh Hpa) 0 gm TOP ASDIRECTED PRN PRN Reason: Sore Nipples Ibuprofen (Motrin) 400 mg PO Q4H PRN PRN Reason: Pain Ibuprofen (Motrin) 800 mg PO Q6H PRN PRN Reason: Pain Last Admin: 11/21/17 06:38 Dose: 800 mg Methylergonovine Maleate (Methergine) 0.2 mg IM ONETIME PRN PRN Reason: Excessive Vaginal Bleeding Oxycodone HCl (Oxycodone) 5 mg PO Q2H PRN PRN Reason: Pain Witch Danya (Tucks) 1 pad TOP ASDIRECTED PRN PRN Reason: comfort care Discontinued Medications Butorphanol Tartrate (Stadol) 1 mg IVPUSH ASDIRECTED PRN PRN Reason: Pain Carboprost Tromethamine (Hemabate Ds) 250 mcg IM ASDIRECTED PRN PRN Reason: Post Hemorrhage Lactated Ringer's (Ringers, Lactated) 1,000 mls @ 150 mls/hr IV ASDIRECTED YUE Last Admin: 11/20/17 11:21 Dose: 999 mls/hr Oxytocin/Sodium Chloride (Oxytocin 30 Unit/500 Ml-Ns) 30 unit in 500 mls @ 999 mls/hr IV TITRATE YUE Oxytocin/Sodium Chloride (Oxytocin 30 Unit/500 Ml-Ns) 30 unit in 500 mls @ 2 mls/hr IV TITRATE YUE; Protocol Last Titration: 11/20/17 14:24 Dose: 500 munits/min, 500 mls/hr Tranexamic Acid 1,000 mg/ (Sodium Chloride) 110 mls @ 660 mls/hr IV ONETIME PRN PRN Reason: Bleeding Fentanyl/Bupivacaine HCl (Qkdsgvid-Zwjmf-Oq 2 Mcg/Ml-0.125%) Confirm Administered Dose 100 mls @ as directed EP .[facility] ONE Stop: 11/20/17 11:21 Lidocaine HCl (Xylocaine 1%) 50 ml INJECT ONETIME PRN PRN Reason: Laceration repair Methylergonovine Maleate (Methergine) 0.2 mg IM ASDIRECTED PRN PRN Reason: Post Hemorrhage Misoprostol (Cytotec) 200 mcg PO ONETIME PRN PRN Reason: Post Hemorrhage Nalbuphine HCl (Nubain) 10 mg IVPUSH ASDIRECTED PRN PRN Reason: Pain (severe 7-10) Sodium Chloride (Saline Flush) 10 ml FLUSH ASDIRECTED PRN PRN Reason: Keep Vein Open Sodium Chloride (Saline Flush) 2.5 ml FLUSH ASDIRECTED PRN PRN Reason: Keep Vein Open Sterile Water (Sterile Water For Irrigation) 1,000 ml IRR ASDIRECTED PRN PRN Reason: delivery Terbutaline Sulfate (Brethine) 0.25 mg SUBCUT ASDIRECTED PRN PRN Reason: Tacysystole - Problem List & Annotations (1) Converted breech presentation delivered SNOMED Code(s): 83193132 Code(s): O32.1XX0 - MATERNAL CARE FOR BREECH PRESENTATION, UNSP Status: Acute Current Visit: Yes (2) Vaginal delivery SNOMED Code(s): 152342100 Code(s): O80 - ENCOUNTER FOR FULL-TERM UNCOMPLICATED DELIVERY Status: Acute Current Visit: Yes - Problem List Review Problem List Initiated/Reviewed/Updated: Yes - My Orders Last 24 Hours: My Active Orders 11/20/17 14:47 Patient Status [ADT] Routine May Shower [RC] ASDIRECTED Up ad Ashly [RC] ASDIRECTED Vital Signs [RC] PER UNIT ROUTINE Acetaminophen [Tylenol Extra Strength] 1,000 mg PO Q4H PRN Acetaminophen [Tylenol Extra Strength] 500 mg PO Q4H PRN Benzocaine/Menthol [Dermoplast Pain Relief 20%-0.5% Cook] 78 gm TOP ASDIRECTED PRN Bisacodyl [Dulcolax] 10 mg RECTAL ONETIME PRN Docusate Sodium [Colace] 100 mg PO BID PRN Ibuprofen [Motrin] 400 mg PO Q4H PRN Ibuprofen [Motrin] 800 mg PO Q6H PRN Lanolin [Lansinoh HPA] See Dose Instructions TOP ASDIRECTED PRN Methylergonovine [Methergine] 0.2 mg IM ONETIME PRN Witch Danya [Tucks] 1 pad TOP ASDIRECTED PRN oxyCODONE 5 mg PO Q2H PRN Assess Lochia [WOMSER] Per Unit Routine Assess Uterine Involution [WOMSER] Per Unit Routine Peripheral IV Discontinue [OM.PC] Routine Resuscitation Status Routine 11/20/17 14:48 Perineal Care [OM.PC] Per Unit Routine 11/20/17 Dinner Regular Diet [DIET] - Plan Plan:: Patient was seen and examined by me and I agree with above.
[2017-11-21 08:07] VITALS: BP 123/71
== END 2017-11-21 17:02 | disposition home or self-care (01) | DRG 560 ==
LOC: MW.OBCHECK 05:03 → MW.OB 05:08 → MW.OBCHECK 05:33 → OBSVTOIN 14:23 → MW.OB 11-21 03:40
PROVIDERS: ADMIT Obstetrics & Gynecology; ATTEND Obstetrics & Gynecology
PROC: 10E0XZZ Delivery of Products of Conception, External Approach (ICD-10-PCS; principal; 2017-11-20)
PROC: 3E033VJ Introduction of Other Hormone into Peripheral Vein, Percutaneous Approach (ICD-10-PCS; 2017-11-20)
PROC: 0HQ9XZZ Repair Perineum Skin, External Approach (ICD-10-PCS; 2017-11-20)
PROC: 00HU33Z Insertion of Infusion Device into Spinal Canal, Percutaneous Approach (ICD-10-PCS; 2017-11-20)
DX: O70.0 First degree perineal laceration during delivery (principal); O69.81X0 Labor and delivery complicated by cord around neck, without compression, not applicable or unspecified; Z3A.39 39 weeks gestation of pregnancy; Z37.0 Single live birth
CPT/HCPCS: 36415; 51702; 59025; 59409; 76815; 76815-26; 82803; 85014; 85018; 85027; 86850; 86900; 86901; A9270-GY; J2590; J7120

== ENCOUNTER 2018-06-03 17:42 | Emergency (ER) | payer BC ==
[2018-06-03] MEDS ORDERED: Diphtheria,Pertussis(Acell),Tetanus Vaccine 0.5 ML Syringe IM ONE (19:23)
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
[2018-06-03 20:27] VITALS: BP 120/84
== END 2018-06-03 20:37 | disposition home or self-care (01) ==
LOC: MW.ED 17:42
DX: Z77.21 Contact with and (suspected) exposure to potentially hazardous body fluids (principal); Z79.899 Other long term (current) drug therapy; K21.9 Gastro-esophageal reflux disease without esophagitis; Y99.0 Civilian activity done for income or pay
CPT/HCPCS: 36415; 86706; 86803; 87340; 87389; 90471; 90715; 99283

== ENCOUNTER 2021-04-30 10:24 | Inpatient (IN) | payer BC, OTHER ==
[2021-04-30] MEDS ORDERED: Butorphanol 1 MG/ML SDV IVPUSH PRN (11:42)
[2021-04-30] MEDS ORDERED: Ondansetron 4 MG/2 ML SDV IVPUSH PRN (11:42)
[2021-04-30] MEDS ORDERED: Sodium Chloride 0.9% 2.5 ML Syringe FLUSH PRN (11:42)
[2021-04-30] MEDS ORDERED: Sodium Chloride 0.9% 10 ML Syringe FLUSH PRN (11:42)
[2021-04-30] MEDS ORDERED: Sodium Chloride 0.9% 20 ML SDV IV PRN (11:42)
[2021-04-30] MEDS ORDERED: Tranexamic Acid 1,000 MG in Sodium Chloride 0.9% 100 ML IV PRN (11:42)
[2021-04-30] MEDS ORDERED: Methylergonovine 0.2 MG/1 ML Amp IM PRN (11:42)
[2021-04-30] MEDS ORDERED: Carboprost Tromethamine 250 MCG/1 ML Amp IM PRN (11:42)
[2021-04-30] MEDS ORDERED: Misoprostol 200 MCG Tab PO PRN (11:42)
[2021-04-30] MEDS ORDERED: Water For Irrigation,Sterile 1,000 ML Container IRR PRN (11:42)
[2021-04-30] MEDS ORDERED: Lidocaine 1% 50 ML MDV INJECT PRN (11:42)
[2021-04-30] MEDS ORDERED: Lactated Ringers 1,000 ML IV SCH (11:45)
[2021-04-30] MEDS ORDERED: Oxytocin/0.9 % Sodium Chloride 30 UNIT/500 ML BAG IV SCH ×2 (11:45→13:00)
[2021-04-30] MEDS ORDERED: Terbutaline 1 MG/ML SDV SUBCUT PRN (12:55)
[2021-04-30] MEDS ORDERED: Ropivacaine 100 ML ONE (14:52)
[2021-04-30] MEDS ORDERED: Bupivacaine 0.25% 10 ML SDV ONE (14:52)
[2021-04-30] MEDS ORDERED: Ropivacaine 200 MG in Premix Bag 1 BAG EPIDUR SCH (15:30)
[2021-04-30] MEDS ORDERED: ePHEDrine 50 MG/ML SDV IVPUSH PRN (15:30)
[2021-04-30] MEDS ORDERED: Benzocaine/Menthol 20%-0.5% Spray 78 GM Cannister TOP PRN (17:20)
[2021-04-30] MEDS ORDERED: Witch Hazel Medicated Pads 40/Jar TOP PRN (17:20)
[2021-04-30] MEDS ORDERED: Lanolin 100% Cream 7 GM Tube TOP PRN (17:20)
[2021-04-30] MEDS ORDERED: Docusate Sodium 100 MG Cap PO PRN (17:20)
[2021-04-30] MEDS ORDERED: Bisacodyl 10 MG Supp RECTAL PRN (17:20)
[2021-04-30] MEDS ORDERED: oxyCODONE 5 MG Tab PO PRN (17:20)
[2021-04-30] MEDS: Ibuprofen 800 MG Tab PO PRN (19:02)
[2021-04-30] MEDS: Acetaminophen 500 MG Tab PO PRN (23:47)
[2021-05-01] MEDS: Acetaminophen 500 MG Tab PO PRN (07:19)
[2021-05-01] MEDS: Ibuprofen 800 MG Tab PO PRN (07:20)
[2021-05-01 20:13] VITALS: BP 119/71; PULSE 79
== END 2021-05-01 20:41 | disposition home or self-care (01) | DRG 807 ==
LOC: MW.OBCHECK 10:24 → MW.OB 11:00 → OBSVTOIN 17:02 → MW.OB 17:02
PROVIDERS: ADMIT Obstetrics & Gynecology; ATTEND Obstetrics & Gynecology
PROC: 10E0XZZ Delivery of Products of Conception, External Approach (ICD-10-PCS; principal; 2021-04-30)
PROC: 10907ZC Drainage of Amniotic Fluid, Therapeutic from Products of Conception, Via Natural or Artificial Opening (ICD-10-PCS; 2021-04-30)
PROC: 0HQ9XZZ Repair Perineum Skin, External Approach (ICD-10-PCS; 2021-04-30)
PROC: 3E0R3BZ Introduction of Anesthetic Agent into Spinal Canal, Percutaneous Approach (ICD-10-PCS; 2021-04-30)
PROC: 00HU33Z Insertion of Infusion Device into Spinal Canal, Percutaneous Approach (ICD-10-PCS; 2021-04-30)
DX: O99.214 Obesity complicating childbirth (principal); Z37.0 Single live birth; O70.0 First degree perineal laceration during delivery; Z3A.37 37 weeks gestation of pregnancy
CPT/HCPCS: 01967; 36415; 59025; 59409; 81003; 84112; 85014; 85018; 85027; 86592; 86850; 86900; 86901; A9270-GY; J2590; J2795; J3490; J7120